=== PATIENT | male | born 1955 | race Caucasian/White ===

== ENCOUNTER 2022-03-16 16:29 | Inpatient (IN) | payer MEDICARE, MEDICAID, SELFPAY ==
[2022-03-16] VITALS (11 sets, daily range): BP systolic 125–145; BP diastolic 66–92; PULSE 17–82; RESP 16–20; TEMP 36.9–37; O2SAT 95–96; BMI 24.3
--- NOTE | ~2022-03-16 | XR_ITS ---
EXAMINATION: XR HAND, RIGHT CLINICAL INFORMATION: Right hand pain, redness and swelling. Fourth digit. COMPARISON: None TECHNIQUE: PA, lateral, and oblique views of the right hand. FINDINGS: Moderate soft tissue swelling is seen in the fourth digit. The underlying osseous structures appear intact without acute fracture or dislocation. The remainder the digits are intact. The carpal bones are normally aligned. The distal radius and ulna are intact. XR/XR hand RT min 3V IMPRESSION: Moderate soft tissue swelling in the fourth digit without acute underlying osseous abnormality. No radiopaque foreign body.
--- NOTE | 2022-03-16 17:55 | ED.EXTPRO ---
HPI - Extremity Problem General Chief complaint: Extremity Injury, Upper Stated complaint: ?Infected finger Time Seen by Provider: 03/16/22 17:49 Source: patient Mode of arrival: ambulatory Limitations: no limitations Related Data Allergies Allergy/AdvReac Type Severity Reaction Status Date / Time No Known Allergies Allergy Verified 03/16/22 17:16 ON LICENSE OF [facility] Social History Social History Advance Directives: No Advance Directives Information Provided: No Physical Exam Vital Signs: Vital Signs: Last Vital Signs Temp 98.6 F 03/16/22 17:13 Pulse 82 03/16/22 17:13 Resp 16 03/16/22 17:13 BP 125/80 03/16/22 17:13 Pulse Ox 96 03/16/22 17:13 BMI result Body Mass Index 24.3
--- NOTE | 2022-03-16 18:01 | ED.SKABFB ---
HPI - Skin/Abscess/Foreign Bdy General Chief complaint: Extremity Injury, Upper Stated complaint: ?Infected finger Time Seen by Provider: 03/16/22 17:49 Source: patient Mode of arrival: ambulatory Limitations: no limitations History of Present Illness HPI narrative: 66-year-old male presenting to the ED with complaints of right ring finger pain/swelling/redness after he was outside approximately 3 days ago and accidentally stuck himself with a flower regan that had thorns he is unsure if they were roses although he reports that they may be since then he has been having the symptoms. He reports associated numbness to the finger. He denies any fevers, chills, history of MRSA or any other symptoms complaints or concerns at this time. He reports he is unsure if he is up-to-date on tetanus MD complaint: abscess/boil Onset (ago): day(s) (3) Tetanus up to date: unsure Location: RUE (index) Severity: severe Severity scale (1-10): >10 Quality: stabbing, aching and constant Pain Consistency: constant Relieving factors: none Exacerbating factors: palpation and movement Context: other (Possible tez thorn regan) Associated symptoms: other (Numbness) Treatments prior to arrival: other (He was able to pull out the torn when it occurred and attempted to drain the pus at home) Related Data Home Medications Medication Instructions Recorded Confirmed No Known Home Meds 03/16/22 03/16/22 Allergies Allergy/AdvReac Type Severity Reaction Status Date / Time No Known Allergies Allergy Verified 03/16/22 17:16 Review of Systems Review of Systems: Constitutional : Denies history of same, Denies any other sites involved, Denies IV drug use, Denies history of MRSA, Denies swollen glands, Denies injury, Denies Fever, Denies Chills, + Sig Pain, Denies Systemic symptoms Cardiovascular : No Chest Pain, No SOB Respiratory : No Dyspnea Gastrointestinal : No abdominal pain Musculoskeletal : No Joint Swelling Skin : + abscess with surrounding erythema, No skin laceration, No Foreign bodies, Denies bites, Denies discharge, Neuro : No Weakness, + Numbness/tingling Psych : No SI/HI/thoughts of self injury Yes all other systems are reviewed and are negative PMFSH Past Medical History Attestation statement: The following information was validated with the patient. Social History Social History Advance Directives: No Advance Directives Information Provided: No Physical Exam Vital Signs: Vital Signs: Last Vital Signs Temp 98.5 F 03/16/22 19:04 Pulse 77 03/16/22 19:04 Resp 20 03/16/22 19:04 BP 145/85 H 03/16/22 19:04 Pulse Ox 96 03/16/22 19:04 BMI result Body Mass Index 24.3 vital signs have been reviewed as normal and appeared to be correct. Blood pressure normal. Heart rate normal. Respiration rate normal. Temperature normal. Oxygen saturation normal. Appearance: Alert. Oriented X3. No acute distress. Head: Normal external exam. Normocephalic. Atraumatic. Eyes: PERRLA. EOMI. Conjunctiva and sclera normal. Eyelids normal. ENT: Pharynx normal. Uvula midline. Moist mucous membranes. Normal voice. No trismus noted. No drooling noted. No muffled voice noted. Neck: Normal inspection. Neck supple. FROM. No adenopathy. Thyroid Normal. No meningeal signs. CVS: Normal heart rate and rhythm. Heart sound normal. Pulses normal throughout. No murmurs/rales/gallops. Respiratory: No respiratory distress. Painless inspiration. Breath sounds normal. No wheezes/rales/rhonchi noted. No accessory muscle usage noted or decreased air movement noted. Back: Full range of motion noted. Nontender. No signs of trauma. Patient neuro intact bilaterally and distally on all 4 extremities. Patient's reflexes intact bilaterally and distally on all 4 extremities. No rashes/lesion/induration/fluctuance or signs of infection noted. Skin: Skin warm and dry. Normal skin color. Normal skin turgor. No lacerations noted. Extremities: To right hand ring finger at the distal aspect patient has fluctuant abscess with moderate surrounding erythema/soft tissue swelling/tenderness palpation and warm to touch consistent with cellulitic infection. He does have limited range of motion on flexion although has full extension although can perform a flexion with the right ring finger as you can see in the pictures below therefore at this time not consistent with tenosynovitis. There appears to be some streaking. Otherwise no drainage or foreign bodies noted at this time. Otherwise all other extremities exhibit normal range of motion and nontender. Neuro: Oriented X 3. No motor deficit. No sensory deficit. Reflexes normal. Normal steady gait. No focal neuro deficits noted. CN's II-XII intact bilaterally? Vascular: + radial pulses/+ 2 distal pedal pulses/+2 dorsalis pedis b/l. Normal cap refill. No cyanosis noted to upper extremity nails and lower extremity toes nails. Course Course Course Narrative: 18pm - 66-year-old male presenting to the ED with 3 days of pain/swelling/redness to his right hand ring finger after he accidentally sustained a tez regan thorn. He reports that he is unsure if he is up-to-date on tetanus. X-ray was obtained while the patient was in waiting room and revealed moderate soft tissue swelling in the 4th digit without acute underlying osseous abnormality and no foreign bodies at this time On exam patient can perform flexion reports mild pain with this therefore I consulted with Orthopedics YEMI Vines and she reported that at this time this is not tenosynovitis and that the patient does not need to go to the operating room at this time she reports that I can perform a bedside I&D the patient on IV antibiotics and admit. I also consulted with Uriel Wharton the infectious disease doctor and she recommended also providing antifungal treatment with p.o. Sporonox 100mg BID x 7 days and IV antibiotics and to admit the patient although we do not have that specific antifungal on our formulary therefore reconsulting with Infectious Disease. Plan: Labs, blood cultures, lactic acid. Provide IV fluids, IV antibiotics and plan to admit patient will also need antifungal is a. Reevaluation(s) Reevaluation #1: - labs reviewed patient with an elevated white blood cell count at 13,000. Otherwise all other labs are within normal limits. Patient negative for COVID. - Dr. Akiko Trevino reported they did not have the Sporonox in formulary that we could use Diflucan therefore I ordered p.o. 800mg Diflucan 100 mg p.o. at this time which is what is recommended on up-to-date as well. - patient now status post I&D with 11 inch scalpel with mild purulent drainage from the site although when I squeeze from the base of the finger I see purulent drainage coming out through the incision I made therefore I consulted with orthopedics PA and she reported that I should keep it open and do warm soaks for 20 minutes 3 to 4 times a day and will continue to do this therefore starting this at this time. Patient will be admitted at this time. Time: 19:05 Reevaluation #2: Dr. Cervantes to admit at this time. Time: 19:26 MDM - Skin/Abscess/Foreign Bdy Medical Records Attestation: I reviewed the patient's medical records. Lab Data Attestation: I reviewed the patient's lab results. Result diagrams: 03/16/22 18:17 03/16/22 18:17 Labs: Lab Results 03/16/22 03/16/22 03/16/22 Range/Units 18:17 18:17 18:17 WBC 13.2 H (4.8-10.8) X10*3/uL RBC 4.61 (4.60-5.80) X10*6/uL Hgb 14.8 (14.0-18.0) g/dl Hct 43.9 (42.0-52.0) % MCV 95.2 (80.0-98.0) fL MCH 32.1 (27.0-33.0) pg MCHC 33.7 (31.0-36.0) g/dl RDW 12.3 (11.0-16.0) % Plt Count 241 (160-400) X10*3/uL MPV 10.9 (9.4-12.4) fL Immature Gran % (Auto) 0.7 H (0.0-0.4) % Neut % (Auto) 73.3 H (45-73) % Lymph % (Auto) 14.2 L (20-40) % [place] % (Auto) 10.7 (2-11) % Eos % (Auto) 0.8 (0-4) % Baso % (Auto) 0.3 (0-2) % Lymph # (Auto) 1.9 (1.2-4.9) X10*3/uL [place] # (Auto) 1.4 H (0.1-1.2) X10*3/uL Eos # (Auto) 0.1 (0.0-0.4) X10*3/uL Baso # (Auto) 0.0 (0.0-0.2) X10*3/uL Abs Immat Gran (auto) 0.09 H (0.00-0.03) X10*3/uL Absolute Neuts (auto) 9.7 H (2.0-8.3) x10*3/uL Absolute Nucleated RBC 0.000 (0.0-0.012) X10*3/uL Nucleated RBC % (auto) 0.0 (0.0-0.2) /100WBC PT 12.4 (9.9-13.0) SEC INR 1.1 (0.9-1.1) Sodium 135 (135-145) mmol/L Potassium 4.5 (3.3-5.1) mmol/L Chloride 101 (96-108) mmol/L Carbon Dioxide 23 (22-29) mmol/L Anion Gap 16 (12-20) BUN 10 (9-16) mg/dL Creatinine 0.76 (0.5-1.4) mg/dL Estim Creat Clear Calc 96.9 Estimated GFR > 60 Random Glucose 95 (60-115) mg/dL Lactic Acid (0.5-2.0) mmol/L Calcium 9.5 (8.4-10.2) mg/dL Magnesium 2.1 (1.6-2.6) mg/dL Total Bilirubin 0.8 (0.0-1.0) mg/dL AST 26 (5-37) U/L ALT 23 (0-40) U/L Alkaline Phosphatase 98 (39-117) U/L Total Protein 7.7 (6.5-8.0) g/dL Albumin 4.2 (3.5-5.0) g/dL COVID-19 ([facility]) (Negative) COVID-19 Clin Com 03/16/22 03/16/22 Range/Units 18:17 18:18 WBC (4.8-10.8) X10*3/uL RBC (4.60-5.80) X10*6/uL Hgb (14.0-18.0) g/dl Hct (42.0-52.0) % MCV (80.0-98.0) fL MCH (27.0-33.0) pg MCHC (31.0-36.0) g/dl RDW (11.0-16.0) % Plt Count (160-400) X10*3/uL MPV (9.4-12.4) fL Immature Gran % (Auto) (0.0-0.4) % Neut % (Auto) (45-73) % Lymph % (Auto) (20-40) % [place] % (Auto) (2-11) % Eos % (Auto) (0-4) % Baso % (Auto) (0-2) % Lymph # (Auto) (1.2-4.9) X10*3/uL [place] # (Auto) (0.1-1.2) X10*3/uL Eos # (Auto) (0.0-0.4) X10*3/uL Baso # (Auto) (0.0-0.2) X10*3/uL Abs Immat Gran (auto) (0.00-0.03) X10*3/uL Absolute Neuts (auto) (2.0-8.3) x10*3/uL Absolute Nucleated RBC (0.0-0.012) X10*3/uL Nucleated RBC % (auto) (0.0-0.2) /100WBC PT (9.9-13.0) SEC INR (0.9-1.1) Sodium (135-145) mmol/L Potassium (3.3-5.1) mmol/L Chloride (96-108) mmol/L Carbon Dioxide (22-29) mmol/L Anion Gap (12-20) BUN (9-16) mg/dL Creatinine (0.5-1.4) mg/dL Estim Creat Clear Calc Estimated GFR Random Glucose (60-115) mg/dL Lactic Acid 1.3 (0.5-2.0) mmol/L Calcium (8.4-10.2) mg/dL Magnesium (1.6-2.6) mg/dL Total Bilirubin (0.0-1.0) mg/dL AST (5-37) U/L ALT (0-40) U/L Alkaline Phosphatase (39-117) U/L Total Protein (6.5-8.0) g/dL Albumin (3.5-5.0) g/dL COVID-19 ([facility]) Negative (Negative) COVID-19 Clin Com See Note Imaging Data X-ray of right hand: Attestation: I personally reviewed and interpreted this imaging study as follows: Radiologist's impression: FINDINGS: Moderate soft tissue swelling is seen in the fourth digit. The underlying osseous structures appear intact without acute fracture or dislocation. The remainder the digits are intact. The carpal bones are normally aligned. The distal radius and ulna are intact. XR/XR hand RT min 3V IMPRESSION: Moderate soft tissue swelling in the fourth digit without acute underlying osseous abnormality. No radiopaque foreign body. Procedures Abscess I/D Site: hand Side (if applicable): right Local Anesthetic: lidocaine 2% Amount of anesthesia used (mL): 5 Technique: incised with blade Amount of fluid expressed (mL): 3 Sent for culture/gram staining?: No Irrigation: Yes Packing used?: none Complications: pain and other (Otherwise no other complications) Critical Care Time Critical Care Time Critical Care Time: Yes Total Critical Care Time: 60 Attestation: I personally attest to this time spent taking care of the patient Discharge Plan Discharge Patient Disposition: Admitted As Inpatient
[2022-03-16 18:30] LABS: MANUAL DIFF FLAG NO
[2022-03-16] MEDS: 0.9 % Sodium Chloride 1,000 ML 999 ML IVCONT (18:32)
[2022-03-16] MEDS: Lidocaine HCl 2 % MPF 5 ML VIAL SUBCUT (18:33)
[2022-03-16] MEDS: cefTRIAXone sodium 2 GM in 0.9 % Sodium Chloride 50 ML IV (18:33)
[2022-03-16] MEDS: Diphth,Pertus(ACell),Tet Adult 0.5 ML SYRINGE IM (18:34)
[2022-03-16 18:37] LABS: INTERNATIONAL NORM RATIO 1.1 (0.9-1.1); Prothrombin Time 12.4 SEC (9.9-13.0)
[2022-03-16] MEDS: Morphine Sulfate 4 MG/ML CARTRIDGE IVPUSH (18:40)
[2022-03-16] MEDS: ondansetron HCL 4 MG/2 ML VIAL IVPUSH (18:40)
[2022-03-16 18:50] LABS: COVID-19 Test Negative (Negative)
--- NOTE | 2022-03-16 18:51 | PC.NURSE ---
PROVIDER AT BEDSIDE FOR I/D.
[2022-03-16 18:54] LABS: Basophils Percent Auto 0.3 % (0-2); Eosinophils Absolute Auto 0.1 X10*3/uL (0.0-0.4); Eosinophils Percent Auto 0.8 % (0-4); Hematocrit 43.9 % (42.0-52.0); Hemoglobin 14.8 g/dl (14.0-18.0); Imm Gran Abs Auto 0.09 X10*3/uL (0.00-0.03); Imm Gran Pct Auto 0.7 % (0.0-0.4); Lymphocytes Absolute Auto 1.9 X10*3/uL (1.2-4.9); Lymphocytes Percent Auto 14.2 % (20-40); Mean Corpuscular HGB Conc 33.7 g/dl (31.0-36.0); Mean Corpuscular Hemoglobin 32.1 pg (27.0-33.0); Mean Corpuscular Volume 95.2 fL (80.0-98.0); Mean Platelet Volume 10.9 fL (9.4-12.4); Monocytes Absolute Auto 1.4 X10*3/uL (0.1-1.2); Monocytes Percent Auto 10.7 % (2-11); Neutrophils Absolute Auto 9.7 x10*3/uL (2.0-8.3); Neutrophils Percent Auto 73.3 % (45-73); Platelet Count 241 X10*3/uL (160-400); Red Blood Count 4.61 X10*6/uL (4.60-5.80); Red Cell Distribution Width 12.3 % (11.0-16.0); White Blood Count 13.2 X10*3/uL (4.8-10.8)
[2022-03-16 18:59] LABS: Lactic Acid 1.3 mmol/L (0.5-2.0)
[2022-03-16] MEDS: HYDROmorphone HCl 1 MG/ML SYRINGE IVPUSH ×2 (18:59→20:01)
[2022-03-16 19:03] LABS: Alanine Aminotransferase 23 U/L (0-40); Albumin Level 4.2 g/dL (3.5-5.0); Alkaline Phosphatase 98 U/L (39-117); Anion Gap 16 (12-20); Aspartate Amino Transferase 26 U/L (5-37); Bilirubin Total 0.8 mg/dL (0.0-1.0); Blood Urea Nitrogen 10 mg/dL (9-16); Calcium 9.5 mg/dL (8.4-10.2); Carbon Dioxide 23 mmol/L (22-29); Chloride 101 mmol/L (96-108); Creatinine Clr Calc Pharmacy 96.9; Estimated Glomerular Filt Rate > 60; Glucose Random 95 mg/dL (60-115); Magnesium 2.1 mg/dL (1.6-2.6); Potassium 4.5 mmol/L (3.3-5.1); Sodium 135 mmol/L (135-145); Total Protein 7.7 g/dL (6.5-8.0)
--- NOTE | 2022-03-16 19:22 | PHA.MEDREC ---
Pharmacy Consult ? Medication Reconciliation Pharmacy has completed the medication reconciliation. Dee Dee Qureshi, KieshaD
[2022-03-16 19:34] LABS: C Reactive Protein 7.05 mg/dL (< or = 0.50)
[2022-03-16 19:59] LABS: Erythrocyte Sedimentation Rate 15 MM/HR (0-15)
[2022-03-16] MEDS: oxyCODONE HCl Immed Release 5 MG TABLET 10 MG PO (21:06)
[2022-03-16] MEDS: Fluconazole 100 MG TABLET 800 MG PO (21:33)
--- NOTE | 2022-03-16 23:39 | PM.IMHP ---
History of Present Illness Date of Service: 03/16/22 Chief Complaint: cellulitis 66-year-old male with no significant past medical history presents to the hospital with swelling of his right ring finger. Patient reports that he was working in the [employer] 3 days ago when he wrecked his hand against a thorn [employer] wish. He thought he got the thorn out of his finger but then started developing swelling, redness, and significant pain in his ring finger on the right. Patient reports the pain is 9/10, nonradiating, the finger has slowly become more swollen and erythematous. He denies any fever or chills, no abdominal pain nausea or vomiting, no diarrhea constipation, no urinary symptoms and no lower extremity edema. On arrival to the ED patient hemodynamically stable with no significant vital abnormality Labs are significant for WBC count of 13.2, labs otherwise unremarkable. CRP of 7 Hand x-ray shows moderate soft tissue swelling Becca 4th digit without acute underlying osseous abnormality Infectious Disease was consult, patient admitted after being given an anti fungal, and IV antibiotics Review of Systems Review of Systems: Yes all other systems are reviewed and are negative [facility] Medical History (Updated 03/17/22 @ 06:11 by Debbie Cervantes MD) No pertinent past medical history Family History (Updated 03/17/22 @ 06:11 by Debbie Cervantes MD) Father Prostate cancer Surgical History (Updated 03/17/22 @ 06:11 by Debbie Cervantes MD) No pertinent past surgical history Social History Household Members: Family Housing: Apartment Patient Tobacco Use Status: Current everyday Tobacco user Tobacco use type: Cigarette Smoked in Last 30 Days: Yes Patient Interested in Nicotine Replacement: Yes Patient Given Instructions on How to Stop Smoking: Yes Date Education Initiated: 03/17/22 Second Hand Smoke Exposure: No Use of substances other than those prescribed or required for medical reasons: No Have you been hit, kicked, punched, or otherwise hurt by someone within the past year? If so, by whom?: No Do you feel safe in your current relationship?: No Current Relationship Is there a partner from a previous relationship who is making you feel unsafe now?: No Advance Directives: No Advance Directives Information Provided: No Do you have thoughts of harming others: None Do you have a plan to hurt others: No Plan Recently lost weight without trying: No Eating poorly because of decreased appetite: No Nutrition Risks: No Nutritional Risk Meds Allergies Allergy/AdvReac Type Severity Reaction Status Date / Time No Known Allergies Allergy Verified 03/16/22 17:16 Active Medications: Current Medications Acetaminophen (Acetaminophen 325 Mg Tablet) 650 mg PO Q6H PRN PRN Reason: Pain, Mild (Pain Scale 1-3) Docusate Sodium (Docusate Sodium 100 Mg Capsule) 100 mg PO DAILY PRN PRN Reason: Constipation Enoxaparin Sodium (Enoxaparin Sodium 40 Mg/0.4 Ml Syringe) 40 mg SUBCUT Q24H ARNULFO Hydromorphone HCl (Hydromorphone Hcl 1 Mg/Ml Syringe) 0.5 mg IVPUSH Q4H PRN; Protocol PRN Reason: Pain, Severe (Pain Scale 7-10) Fluconazole (Diflucan) 400 mg in 200 mls @ 100 mls/hr IV Q24H ARNULFO Vancomycin HCl 1,250 mg/ (Sodium Chloride) 250 mls @ 166.667 mls/hr IV Q12H ARNUFLO Ondansetron HCl (Ondansetron Hcl 4 Mg/2 Ml Vial) 4 mg IVPUSH Q8H PRN PRN Reason: Nausea and Vomiting Pharmacy Consult (Consult Rx Perform Med Rec) 1 each MISCELLANE ONCE PRN PRN Reason: Consult order Pharmacy Consult (Consult Rx Vancomycin Dosing) 1 each MISCELLANE DAILY PRN PRN Reason: Consult order Sodium Chloride (0.9 % Sodium Chloride Flush 3 Ml Syringe) 3 ml IVFLUSH QSHIFT [facility] Home Medications Medication Instructions Recorded Confirmed Last Taken Type No Known Home Meds 03/16/22 03/16/22 Unknown History Physical Exam Vital Signs and Narrative: Vital Signs: Last Vital Signs Temp 98.4 F 03/16/22 22:26 Pulse 79 03/16/22 22:26 Resp 18 03/16/22 22:26 BP 128/66 03/16/22 22:26 Pulse Ox 95 03/16/22 22:26 BMI result Body Mass Index 24.3 Const: General: cooperative and no acute distress Orientation/consciousness: patient oriented x3 Eyes: General: appearance normal, both eyes and all related structures Pupils: Equal, round and reactive pupils present Resp: Effort & Inspection: normal respiratory effort Auscultation: clear to auscultation bilaterally Cardio: Rate: regular rate Rhythm: regular rhythm GI: Palpation (GI): Soft to palpation Auscultation: normal bowel sounds Skin: General skin exam: no rashes or lesions noted Neuro: General: patient oriented x3 Cranial nerves: Yes Equal, round and reactive pupils present Cognition (Neuro): normal cognition Extrem: Other: Ring finger on the right is erythematous, edematous, tender and warm Results Labs CBC and Chem 7: 03/17/22 05:36 03/17/22 05:36 Labs: Laboratory Results - last 24 hr 03/16/22 03/16/22 03/16/22 18:17 18:17 18:17 MCV 95.2 MCH 32.1 MCHC 33.7 RDW 12.3 Plt Count 241 MPV 10.9 Immature Gran % (Auto) 0.7 H Neut % (Auto) 73.3 H Lymph % (Auto) 14.2 L [place] % (Auto) 10.7 Eos % (Auto) 0.8 Baso % (Auto) 0.3 Lymph # (Auto) 1.9 [place] # (Auto) 1.4 H Eos # (Auto) 0.1 Baso # (Auto) 0.0 Abs Immat Gran (auto) 0.09 H Absolute Neuts (auto) 9.7 H Absolute Nucleated RBC 0.000 Nucleated RBC % (auto) 0.0 ESR PT 12.4 INR 1.1 Anion Gap 16 Estim Creat Clear Calc 96.9 Estimated GFR > 60 Random Glucose 95 Lactic Acid Calcium 9.5 Magnesium 2.1 Total Bilirubin 0.8 AST 26 ALT 23 Alkaline Phosphatase 98 C-Reactive Protein 7.05 H Total Protein 7.7 Albumin 4.2 COVID-19 ([facility]) COVID-19 Clin Com 03/16/22 03/16/22 03/16/22 18:17 18:17 18:18 MCV MCH MCHC RDW Plt Count MPV Immature Gran % (Auto) Neut % (Auto) Lymph % (Auto) [place] % (Auto) Eos % (Auto) Baso % (Auto) Lymph # (Auto) [place] # (Auto) Eos # (Auto) Baso # (Auto) Abs Immat Gran (auto) Absolute Neuts (auto) Absolute Nucleated RBC Nucleated RBC % (auto) ESR 15 PT INR Anion Gap Estim Creat Clear Calc Estimated GFR Random Glucose Lactic Acid 1.3 Calcium Magnesium Total Bilirubin AST ALT Alkaline Phosphatase C-Reactive Protein Total Protein Albumin COVID-19 ([facility]) Negative COVID-19 Clin Com See Note Imaging Radiologist's Impressions: Impressions Hand X-Ray 03/16/22 17:25 IMPRESSION: Moderate soft tissue swelling in the fourth digit without acute underlying osseous abnormality. No radiopaque foreign body. Assessment and Plan (1) Cutaneous sporotrichosis: Status: Acute (2) Cellulitis: Status: Acute Plan 66-year-old male with no pertinent past medical history presents to the hospital after being prepped by 30 tez regan developing swelling in his right ring finger # cutaneous sporotrichosis - will treat with IV fluconazole, itraconazole is first-line but not on formulary - follow cultures - infectious Disease consulted # cellulitis - has erythema, tenderness, warmth, as well as edema - will treat with IV antibiotics - follow cultures DVT prophylaxis: Lovenox Quality Stroke Does the patient have a stroke diagnosis?: No VTE Prior VTE?: No VTE Risk Level:: Medical - moderate - high VTE Device Contraindication: Treatment Not Indicated VTE Drug Contraindication: N/A - Med Ordered
[2022-03-17] VITALS (7 sets, daily range): BP systolic 123–140; BP diastolic 67–76; PULSE 62–78; RESP 17–20; TEMP 36.7–37.2; O2SAT 93–98
--- NOTE | 2022-03-17 01:34 | PC.NURSE ---
This RN contacting pharmacy regarding discrepancy order for Vanco. First dose ordered until noon time today. Pharmacy to correct.
[2022-03-17] MEDS: HYDROmorphone HCl 1 MG/ML SYRINGE 0.5 MG IVPUSH ×4 (01:43→22:03)
[2022-03-17] MEDS: Acetaminophen 325 MG TABLET 650 MG PO (01:43)
[2022-03-17] MEDS: Enoxaparin Sodium 40 MG/0.4 ML SYRINGE SUBCUT (01:43)
[2022-03-17] MEDS: vancomycin HCL 1,250 MG in 0.9 % Sodium Chloride 250 ML 166.67 MG IV (01:44)
--- NOTE | 2022-03-17 01:51 | PC.NURSE ---
Pt medicated per JAN. Plan for transport to floor once able to give report to RN.
--- NOTE | 2022-03-17 02:10 | PC.NURSE ---
M/S unable to take report @ this time.
[2022-03-17 05:43] LABS: MANUAL DIFF FLAG NO
[2022-03-17 05:47] LABS: Basophils Percent Auto 0.2 % (0-2); Eosinophils Absolute Auto 0.1 X10*3/uL (0.0-0.4); Eosinophils Percent Auto 0.8 % (0-4); Hematocrit 40.5 % (42.0-52.0); Hemoglobin 13.3 g/dl (14.0-18.0); Imm Gran Abs Auto 0.04 X10*3/uL (0.00-0.03); Imm Gran Pct Auto 0.3 % (0.0-0.4); Lymphocytes Absolute Auto 1.7 X10*3/uL (1.2-4.9); Lymphocytes Percent Auto 13.8 % (20-40); Mean Corpuscular HGB Conc 32.8 g/dl (31.0-36.0); Mean Corpuscular Volume 97.6 fL (80.0-98.0); Mean Platelet Volume 10.3 fL (9.4-12.4); Monocytes Absolute Auto 1.5 X10*3/uL (0.1-1.2); Monocytes Percent Auto 12.3 % (2-11); Neutrophils Absolute Auto 8.8 x10*3/uL (2.0-8.3); Neutrophils Percent Auto 72.6 % (45-73); Platelet Count 208 X10*3/uL (160-400); Red Blood Count 4.15 X10*6/uL (4.60-5.80); Red Cell Distribution Width 12.4 % (11.0-16.0); White Blood Count 12.1 X10*3/uL (4.8-10.8)
[2022-03-17 06:07] LABS: Anion Gap 12 (12-20); Blood Urea Nitrogen 11 mg/dL (9-16); Calcium 9.2 mg/dL (8.4-10.2); Carbon Dioxide 27 mmol/L (22-29); Chloride 101 mmol/L (96-108); Creatinine Clr Calc Pharmacy 88.7; Estimated Glomerular Filt Rate > 60; Glucose Random 98 mg/dL (60-115); Potassium 5.3 mmol/L (3.3-5.1); Sodium 135 mmol/L (135-145)
[2022-03-17] MEDS: 0.9 % Sodium Chloride Flush 3 ML SYRINGE IVFLUSH ×2 (08:13→15:54)
[2022-03-17] MEDS: Nicotine 21 MG PATCH.TD24 TRANSDERMA (08:13)
[2022-03-17] MEDS: oxyCODONE HCl Immed Release 5 MG TABLET 10 MG PO ×2 (10:06→14:32)
--- NOTE | 2022-03-17 10:12 | P.PNIM_ITS ---
Subjective Subjective Date of Service: 03/17/22 <DOLORES Rodriguez - Last Filed: 03/17/22 10:30> 03/18/22 <John Moore MD - Last Filed: 03/18/22 08:11> Interval History: seen and examined this morning follow up for right hand infection patient reports significant pain. denies fever or chills <DOLORES Rodriguez - Last Filed: 03/17/22 10:30> Review of Systems Review of Systems: Yes all other systems are reviewed and are negative <DOLORES Rodriguez - Last Filed: 03/17/22 10:30> Constitutional Constitutional: Denies chills and Denies fever(s) <DOLORES Rodriguez - Last Filed: 03/17/22 10:30> Cardiovascular Cardiovascular: Denies chest pain, Denies palpitations and Denies dyspnea <DOLORES Rodriguez Last Filed: 03/17/22 10:30> Respiratory Respiratory: Denies cough and Denies dyspnea <DOLORES Rodriguez - Last Filed: 03/17/22 10:30> Gastrointestinal Gastrointestinal: Denies abdominal pain, Denies nausea and Denies vomiting <DOLORES Rodriguez Last Filed: 03/17/22 10:30> Endocrine Endocrine: Denies palpitations <DOLORES Rodriguez - Last Filed: 03/17/22 10:30> Physical Exam Vital Signs: Vital Signs: Last Vital Signs Temp 98.4 F 03/17/22 07:17 Pulse 65 03/17/22 07:17 Resp 20 03/17/22 07:17 BP 140/76 H 03/17/22 07:17 Pulse Ox 95 03/17/22 07:17 BMI result Body Mass Index 24.3 <DOLORES Rodriguez Last Filed: 03/17/22 10:30> Const: General: cooperative, alert and awake <DOLORES Rodriguez Last Filed: 03/17/22 10:30> Nutritional Appearance: average body habitus <DOLORES Rodriguez Last Filed: 03/17/22 10:30> Orientation/consciousness: patient oriented x3 <DOLORES Rodriguez Last Filed: 03/17/22 10:30> Eyes: Pupils: Equal, round and reactive pupils present <DOLORES Rodriguez - Last Filed: 03/17/22 10:30> EOM: EOMs intact bilaterally <DOLORES Rodriguez - Last Filed: 03/17/22 10:30> Resp: Effort & Inspection: normal respiratory effort and able to speak in complete sentences <DOLORES Rodriguez - Last Filed: 03/17/22 10:30> Auscultation: clear to auscultation bilaterally <DOLORES Rodriguez - Last Filed: 03/17/22 10:30> Cardio: Rate: regular rate <DOLORES Rodriguez - Last Filed: 03/17/22 10:30> Heart sounds: S1 normal heart sound present and S2 normal heart sound present <DOLORES Rodriguez - Last Filed: 03/17/22 10:30> GI: Palpation (GI): Soft to palpation and nontender <DOLORES Rodriguez - Last Filed: 03/17/22 10:30> Skin: Other: <DOLORES Rodriguez - Last Filed: 03/17/22 10:30> Neuro: General: patient oriented x3 <DOLORES Rodriguez - Last Filed: 03/17/22 10:30> Cranial nerves: Yes Equal, round and reactive pupils present <DOLORES Rodriguez - Last Filed: 03/17/22 10:30> Objective Data Active Medications Acetaminophen (Acetaminophen 325 Mg Tablet) 650 mg PO Q6H PRN PRN Reason: Pain, Mild (Pain Scale 1-3) Last Admin: 03/17/22 01:43 Dose: 650 mg Documented by: LESLY Docusate Sodium (Docusate Sodium 100 Mg Capsule) 100 mg PO DAILY PRN PRN Reason: Constipation Enoxaparin Sodium (Enoxaparin Sodium 40 Mg/0.4 Ml Syringe) 40 mg SUBCUT Q24H [facility] Last Admin: 03/17/22 01:43 Dose: 40 mg Documented by: LESLY Hydromorphone HCl (Hydromorphone Hcl 1 Mg/Ml Syringe) 0.5 mg IVPUSH Q4H PRN; Protocol PRN Reason: Pain, Severe (Pain Scale 7-10) Last Admin: 03/17/22 06:02 Dose: 0.5 mg Documented by: MAHENDRA Fluconazole (Diflucan) 400 mg in 200 mls @ 100 mls/hr IV Q24H [facility] Nicotine (Nicotine 21 Mg Patch.Td24) 21 mg TRANSDERMA DAILY [facility] Last Admin: 03/17/22 08:13 Dose: 21 mg Documented by: ОЛЬГА Ondansetron HCl (Ondansetron Hcl 4 Mg/2 Ml Vial) 4 mg IVPUSH Q8H PRN PRN Reason: Nausea and Vomiting Oxycodone HCl (Oxycodone Hcl Immed Release 5 Mg Tablet) 10 mg PO Q4H PRN PRN Reason: Pain, Moderate (Pain Scale 4-6 Last Admin: 03/17/22 10:06 Dose: 10 mg Documented by: ОЛЬГА Pharmacy Consult (Consult Rx Perform Med Rec) 1 each MISCELLANE ONCE PRN PRN Reason: Consult order Pharmacy Consult (Consult Rx Vancomycin Dosing) 1 each MISCELLANE DAILY PRN PRN Reason: Consult order Sodium Chloride (0.9 % Sodium Chloride Flush 3 Ml Syringe) 3 ml IVFLUSH QSHIFT [facility] Last Admin: 03/17/22 08:13 Dose: 3 ml Documented by: ОЛЬГА <DOLORES Rodriguez - Last Filed: 03/17/22 10:30> Labs CBC & Chem 7: : 03/18/22 05:46 03/18/22 05:45 <DOLORES Rodriguez - Last Filed: 03/17/22 10:30> Labs: Laboratory Results - last 24 hr 03/16/22 03/16/22 03/16/22 18:17 18:17 18:17 MCV 95.2 MCH 32.1 MCHC 33.7 RDW 12.3 Plt Count 241 MPV 10.9 Immature Gran % (Auto) 0.7 H Neut % (Auto) 73.3 H Lymph % (Auto) 14.2 L [place] % (Auto) 10.7 Eos % (Auto) 0.8 Baso % (Auto) 0.3 Lymph # (Auto) 1.9 [place] # (Auto) 1.4 H Eos # (Auto) 0.1 Baso # (Auto) 0.0 Abs Immat Gran (auto) 0.09 H Absolute Neuts (auto) 9.7 H Absolute Nucleated RBC 0.000 Nucleated RBC % (auto) 0.0 ESR PT 12.4 INR 1.1 Anion Gap 16 Estim Creat Clear Calc 96.9 Estimated GFR > 60 Random Glucose 95 Lactic Acid Calcium 9.5 Magnesium 2.1 Total Bilirubin 0.8 AST 26 ALT 23 Alkaline Phosphatase 98 C-Reactive Protein 7.05 H Total Protein 7.7 Albumin 4.2 COVID-19 ([facility]) COVID-19 Clin Com 03/16/22 03/16/22 03/16/22 18:17 18:17 18:18 MCV MCH MCHC RDW Plt Count MPV Immature Gran % (Auto) Neut % (Auto) Lymph % (Auto) [place] % (Auto) Eos % (Auto) Baso % (Auto) Lymph # (Auto) [place] # (Auto) Eos # (Auto) Baso # (Auto) Abs Immat Gran (auto) Absolute Neuts (auto) Absolute Nucleated RBC Nucleated RBC % (auto) ESR 15 PT INR Anion Gap Estim Creat Clear Calc Estimated GFR Random Glucose Lactic Acid 1.3 Calcium Magnesium Total Bilirubin AST ALT Alkaline Phosphatase C-Reactive Protein Total Protein Albumin COVID-19 ([facility]) Negative COVID-19 Blood cell Storage Com See Note 03/17/22 03/17/22 05:36 05:36 MCV 97.6 MCH 32.0 MCHC 32.8 RDW 12.4 Plt Count 208 MPV 10.3 Immature Gran % (Auto) 0.3 Neut % (Auto) 72.6 Lymph % (Auto) 13.8 L [place] % (Auto) 12.3 H Eos % (Auto) 0.8 Baso % (Auto) 0.2 Lymph # (Auto) 1.7 [place] # (Auto) 1.5 H Eos # (Auto) 0.1 Baso # (Auto) 0.0 Abs Immat Gran (auto) 0.04 H Absolute Neuts (auto) 8.8 H Absolute Nucleated RBC 0.000 Nucleated RBC % (auto) 0.0 ESR PT INR Anion Gap 12 Estim Creat Clear Calc 88.7 Estimated GFR > 60 Random Glucose 98 Lactic Acid Calcium 9.2 Magnesium Total Bilirubin AST ALT Alkaline Phosphatase C-Reactive Protein Total Protein Albumin COVID-19 ([facility]) COVID-19 Clin Com <DOLORES Rodriguez - Last Filed: 03/17/22 10:30> Assessment and Plan (1) Cutaneous sporotrichosis: Status: Acute <DOLORES Rodriguez - Last Filed: 03/17/22 10:30> (2) Cellulitis: Status: Acute <DOLORES Rodriguez - Last Filed: 03/17/22 10:30> Plan 66-year-old male with no pertinent past medical history presents to the hospital after being prepped by 30 [address] developing swelling in his right ring finger Cellulitis/abscess of right forth finger No evidence of sepsis s/p I&D in ED, no fluid sent for culture will cover for possible cutaneous sporotrichosis with IV fluconazole (itraconazole not on formulary) given patient's history of injury with tez regan thorn - continue IV vancomycin - seen by ortho, no surgical intervention required at this time, recommended warm soaks 3-4x daily - infectious Disease consult pending - pain control - follow blood cultures tob dependence smoking cessation advised NRT DVT prophylaxis: Lovenox Attending: dr. moore <DOLORES Rodriguez - Last Filed: 03/17/22 10:30> Quality Stroke Does the patient have a stroke diagnosis?: No <DOLORES Rodriguez - Last Filed: 03/17/22 10:30> VTE Prior VTE?: No <DOLORES Rodriguez - Last Filed: 03/17/22 10:30> VTE Risk Level:: Medical - moderate - high <DOLORES Rodriguez - Last Filed: 03/17/22 10:30> VTE Device Contraindication: Treatment Not Indicated <DOLORES Rodriguez - Last Filed: 03/17/22 10:30> VTE Drug Contraindication: N/A - Med Ordered <DOLORES Rodriguez - Last Filed: 03/17/22 10:30>
--- NOTE | 2022-03-17 11:06 | PM.EVENT ---
Event Note Date of Service: 03/17/22 Event Note: Patient seen this morning around 530am states 4 days ago he got a thorn prick in his finger and 2 days ago he noticed worsening pain and swelling in the right ring finger ED performed bedside I&D with little drainage ID consulted who recommended antifungals and iv abx i encouraged him to continue with abx and antifungals, warm water soaks there is no fluctulant or purulant area at this time to drain he can make fist bringing tip of fingers about 2cm from palmar crease. no pain with passive extension no pain along the flexor tendons, palmar aspect of hand or in thenar eminence no pain with axial loading of finger or wrist no lymphangitis will recheck tomorrow
--- NOTE | 2022-03-17 12:04 | MHC.CM.PN ---
IMM 03/17/22, EMR REVIEWED, PT ADMITTED W/CELLULITIS OF FINGER, BC'S PENDING, CM MET W/PT WHO IS A&OX4, PT REPORTS HE LIVES IN [place] HOWEVER IS VISITING HIS [facility] (AND FAMILY) IN [place] AND PLANS ON RETURNING THERE UPON D/C, PT DENIES USE OF DME AND NO HOME SERVICES, PT REPORTS HE HAS BEEN SPLITTING HIS TIME BETWEEN [place], [place] AND FAMILY IN [place], PT WILL RETURN TO [place] BEFORE RETURNING HOME TO [place]. PT REPORTS HE HAS A PCP IN [place] HOWEVER UNABLE TO RECALL NAME, PT DENIES BEING VACCINATED FOR COVID AND DECLINE TO COMPLETE A HCP AT THIS TIME. D/C PLAN: RETURN TO NEPHEW'S HOME NO SERVICES, FAMILY TO ARRANGE TRANSPORT.
[2022-03-17] MEDS: vancomycin HCL 1,000 MG in 0.9 % Sodium Chloride 250 ML 270 MG IV (14:35)
[2022-03-17] MEDS: Fluconazole in NaCl,Iso-Osm 400 MG/200 ML PIGGYBACK 100 MG IV (22:05)
[2022-03-18] MEDS: oxyCODONE HCl Immed Release 5 MG TABLET 10 MG PO ×4 (00:48→20:11)
[2022-03-18] MEDS: vancomycin HCL 1,000 MG in 0.9 % Sodium Chloride 250 ML 270 MG IV (00:49)
[2022-03-18 04:00] VITALS: BP 154/70; PULSE 67; RESP 17; TEMP 36.8; O2SAT 95
[2022-03-18 07:01] LABS: Hematocrit 42.2 % (42.0-52.0); Hemoglobin 13.5 g/dl (14.0-18.0); Mean Corpuscular Hemoglobin 31.3 pg (27.0-33.0); Mean Corpuscular Volume 97.7 fL (80.0-98.0); Platelet Count 208 X10*3/uL (160-400); Red Blood Count 4.32 X10*6/uL (4.60-5.80); Red Cell Distribution Width 12.1 % (11.0-16.0); White Blood Count 7.8 X10*3/uL (4.8-10.8)
[2022-03-18 07:13] LABS: Anion Gap 12 (12-20); Blood Urea Nitrogen 9 mg/dL (9-16); Calcium 9.3 mg/dL (8.4-10.2); Carbon Dioxide 28 mmol/L (22-29); Chloride 100 mmol/L (96-108); Creatinine Clr Calc Pharmacy 88.7; Estimated Glomerular Filt Rate > 60; Glucose Random 97 mg/dL (60-115); Potassium 4.4 mmol/L (3.3-5.1); Sodium 136 mmol/L (135-145)
[2022-03-18 07:38] VITALS: BP 151/75; PULSE 67; RESP 20; TEMP 37.3; O2SAT 94
--- NOTE | 2022-03-18 08:11 | P.PNIM_ITS ---
Subjective Subjective Date of Service: 03/18/22 Interval History: follow up for right hand infection patient reports improvement in the pain in the finger Review of Systems some pain in the finger, no fever Physical Exam Vital Signs: Vital Signs: Last Vital Signs Temp 99.1 F 03/18/22 07:38 Pulse 67 03/18/22 07:38 Resp 20 03/18/22 07:38 BP 151/75 H 03/18/22 07:38 Pulse Ox 94 03/18/22 07:38 BMI result Body Mass Index 24.3 Const: Orientation/consciousness: patient oriented x3 Resp: Effort & Inspection: normal respiratory effort Auscultation: clear to auscultation bilaterally Cardio: Rate: regular rate Rhythm: regular rhythm Heart sounds: S1 normal heart sound present and S2 normal heart sound present GI: Palpation (GI): Soft to palpation and nontender Auscultation: normal bowel sounds Skin: Other: Neuro: General: patient oriented x3 Extrem: Other: Ring finger on the right is erythematous, edematous, tender and warm Objective Data Active Medications Acetaminophen (Acetaminophen 325 Mg Tablet) 650 mg PO Q6H PRN PRN Reason: Pain, Mild (Pain Scale 1-3) Last Admin: 03/17/22 01:43 Dose: 650 mg Documented by: LESLY Docusate Sodium (Docusate Sodium 100 Mg Capsule) 100 mg PO DAILY PRN PRN Reason: Constipation Enoxaparin Sodium (Enoxaparin Sodium 40 Mg/0.4 Ml Syringe) 40 mg SUBCUT Q24H [facility] Last Admin: 03/18/22 00:49 Dose: Not Given Documented by: MAHENDRA Non-Admin Reason: pt ambulates actively Hydromorphone HCl (Hydromorphone Hcl 1 Mg/Ml Syringe) 0.5 mg IVPUSH Q4H PRN; Protocol PRN Reason: Pain, Severe (Pain Scale 7-10) Last Admin: 03/17/22 22:03 Dose: 0.5 mg Documented by: MAHENDRA Fluconazole (Diflucan) 400 mg in 200 mls @ 100 mls/hr IV Q24H [facility] Last Infusion: 03/18/22 00:22 Dose: 0 mls/hr Documented by: MAHENDRA Vancomycin HCl 1,000 mg/ (Sodium Chloride) 270 mls @ 270 mls/hr IV Q12H [facility] Last Infusion: 03/18/22 02:19 Dose: 0 mls/hr Documented by: MAHENDRA Nicotine (Nicotine 21 Mg Patch.Td24) 21 mg TRANSDERMA DAILY [facility] Last Admin: 03/17/22 08:13 Dose: 21 mg Documented by: ОЛЬГА Ondansetron HCl (Ondansetron Hcl 4 Mg/2 Ml Vial) 4 mg IVPUSH Q8H PRN PRN Reason: Nausea and Vomiting Oxycodone HCl (Oxycodone Hcl Immed Release 5 Mg Tablet) 10 mg PO Q4H PRN PRN Reason: Pain, Moderate (Pain Scale 4-6 Last Admin: 03/18/22 00:48 Dose: 10 mg Documented by: MAHENDRA Pharmacy Consult (Consult Rx Perform Med Rec) 1 each MISCELLANE ONCE PRN PRN Reason: Consult order Pharmacy Consult (Consult Rx Vancomycin Dosing) 1 each MISCELLANE DAILY PRN PRN Reason: Consult order Sodium Chloride (0.9 % Sodium Chloride Flush 3 Ml Syringe) 3 ml IVFLUSH QSHIFT [facility] Last Admin: 03/17/22 22:54 Dose: Not Given Documented by: MAHENDRA Non-Admin Reason: IV Running Labs CBC & Chem 7: 03/18/22 05:46 03/18/22 05:45 Labs: Laboratory Results - last 24 hr 03/18/22 03/18/22 05:45 05:46 MCV 97.7 MCH 31.3 MCHC 32.0 RDW 12.1 Plt Count 208 MPV 11.0 Absolute Nucleated RBC 0.000 Nucleated RBC % (auto) 0.0 Anion Gap 12 Estim Creat Clear Calc 88.7 Estimated GFR > 60 Random Glucose 97 Calcium 9.3 Microbiology Microbiology Results: Microbiology 03/16/22 18:17 Blood Culture - Preliminary Blood - Venous No growth after 24 hours. 03/16/22 18:19 Blood Culture - Preliminary Blood - Venous No growth after 24 hours. Assessment and Plan (1) Cutaneous sporotrichosis: Status: Acute (2) Cellulitis: Status: Acute Plan 66-year-old male with no pertinent past medical history presents to the hospital after being prepped by 30 [address] developing swelling in his right ring finger Cellulitis/abscess of right forth finger No evidence of sepsis s/p I&D in ED, no fluid sent for culture will cover for possible cutaneous sporotrichosis with IV fluconazole (itraconazole not on formulary) given patient's history of injury with tez regan thorn - continue IV vancomycin - seen by ortho, no surgical intervention required at this time, recommended warm soaks 3-4x daily - infectious Disease consult pending - pain control - follow blood cultures tob dependence smoking cessation advised NRT DVT prophylaxis: Lovemichaelx Attending: dr. devlin Quality Stroke Does the patient have a stroke diagnosis?: No VTE Prior VTE?: No VTE Risk Level:: Medical - moderate - high VTE Device Contraindication: Treatment Not Indicated VTE Drug Contraindication: N/A - Med Ordered
[2022-03-18] MEDS: Nicotine 21 MG PATCH.TD24 TRANSDERMA (09:34)
[2022-03-18] MEDS: 0.9 % Sodium Chloride Flush 3 ML SYRINGE IVFLUSH ×2 (09:35→16:16)
[2022-03-18 11:41] VITALS: BP 141/87; PULSE 61; RESP 18; TEMP 36.9; O2SAT 95
[2022-03-18 13:27] LABS: Vancomycin Trough 7.6 mcg/mL (10.0-20.0)
--- NOTE | 2022-03-18 13:50 | HE.PHANOTE ---
RE IRVIN Increase dose to 1250mg q12h, next trough due at midnight 03/20. Suspected trough 14.2, auc 510 Thanks Rodolfo
[2022-03-18] MEDS: HYDROmorphone HCl 1 MG/ML SYRINGE 0.5 MG IVPUSH (14:23)
[2022-03-18] MEDS: vancomycin HCL 1,250 MG in 0.9 % Sodium Chloride 250 ML 166.67 MG IV (14:23)
[2022-03-18 16:00] VITALS: BP 134/85; PULSE 63; RESP 18; TEMP 37; O2SAT 97
--- NOTE | 2022-03-18 17:48 | P.CONOP_ITS ---
History of Present Illness HPI Consult date: 03/17/22 Chief complaint: Hand Cellulitis Narrative: Mr Raines is a 66 yo male who was admitted to the medical service for right hand cellulitis. He was working outside and got some cuts on his hand from a tez regan about 4 days ago. He states 2 days ago he noticed some pain and swelling of the ring finger. He tried soaking the finger but it only became worse. While in the ED, he had a besdie I&D and a small amount of pus was expressed. He was admitted to the hospital for iv abx and antifungals. Orthopedics was consulted for further recoommendations. Review of Systems Review of Systems: as per [facility] Past Medical History Medical History (Updated 03/17/22 @ 06:11 by Debbie Cervantes MD) No pertinent past medical history Family History Family History (Updated 03/17/22 @ 06:12 by Debbie Cervantes MD) Father Prostate cancer Surgical History Surgical History (Updated 03/17/22 @ 06:11 by Debbie Cervantes MD) No pertinent past surgical history Social History Social History Household Members: Family Housing: Apartment Patient Tobacco Use Status: Current everyday Tobacco user Tobacco use type: Cigarette Smoked in Last 30 Days: Yes Patient Interested in Nicotine Replacement: Yes Patient Given Instructions on How to Stop Smoking: Yes Date Education Initiated: 03/17/22 Second Hand Smoke Exposure: No Use of substances other than those prescribed or required for medical reasons: No Currently Displaying Signs/Symptoms of Drug Intoxication Withdrawal: No Have you been hit, kicked, punched, or otherwise hurt by someone within the past year? If so, by whom?: No Do you feel safe in your current relationship?: No Current Relationship Is there a partner from a previous relationship who is making you feel unsafe now?: No Advance Directives: No Advance Directives Information Provided: No Do you have thoughts of harming others: None Do you have a plan to hurt others: No Plan Recently lost weight without trying: No Eating poorly because of decreased appetite: No Nutrition Risks: No Nutritional Risk service: No Current occupational status: unemployed Meds Allergies Allergy/AdvReac Type Severity Reaction Status Date / Time No Known Allergies Allergy Verified 03/16/22 17:16 Active Medications: Current Medications Acetaminophen (Acetaminophen 325 Mg Tablet) 650 mg PO Q6H PRN PRN Reason: Pain, Mild (Pain Scale 1-3) Last Admin: 03/17/22 01:43 Dose: 650 mg Documented by: Docusate Sodium (Docusate Sodium 100 Mg Capsule) 100 mg PO DAILY PRN PRN Reason: Constipation Enoxaparin Sodium (Enoxaparin Sodium 40 Mg/0.4 Ml Syringe) 40 mg SUBCUT Q24H [facility] Last Admin: 03/18/22 00:49 Dose: Not Given Documented by: Hydromorphone HCl (Hydromorphone Hcl 1 Mg/Ml Syringe) 0.5 mg IVPUSH Q4H PRN; Protocol PRN Reason: Pain, Severe (Pain Scale 7-10) Last Admin: 03/18/22 14:23 Dose: 0.5 mg Documented by: Fluconazole (Diflucan) 400 mg in 200 mls @ 100 mls/hr IV Q24H [facility] Last Infusion: 03/18/22 00:22 Dose: Infused Documented by: Vancomycin HCl 1,250 mg/ (Sodium Chloride) 250 mls @ 166.667 mls/hr IV Q12H [facility] Last Infusion: 03/18/22 16:11 Dose: Infused Documented by: Nicotine (Nicotine 21 Mg Patch.Td24) 21 mg TRANSDERMA DAILY [facility] Last Admin: 03/18/22 09:34 Dose: 21 mg Documented by: Ondansetron HCl (Ondansetron Hcl 4 Mg/2 Ml Vial) 4 mg IVPUSH Q8H PRN PRN Reason: Nausea and Vomiting Oxycodone HCl (Oxycodone Hcl Immed Release 5 Mg Tablet) 10 mg PO Q4H PRN PRN Reason: Pain, Moderate (Pain Scale 4-6 Last Admin: 03/18/22 16:19 Dose: 10 mg Documented by: Pharmacy Consult (Consult Rx Perform Med Rec) 1 each MISCELLANE ONCE PRN PRN Reason: Consult order Pharmacy Consult (Consult Rx Vancomycin Dosing) 1 each MISCELLANE DAILY PRN PRN Reason: Consult order Sodium Chloride (0.9 % Sodium Chloride Flush 3 Ml Syringe) 3 ml IVFLUSH QSHIFT [facility] Last Admin: 03/18/22 16:16 Dose: 3 ml Documented by: Home Medications Medication Instructions Recorded Confirmed Last Taken Type No Known Home Meds 03/16/22 03/16/22 Unknown History Physical Exam Vital Signs: Vital Signs: Last Vital Signs Temp 98.6 F 03/18/22 16:00 Pulse 63 03/18/22 16:00 Resp 18 03/18/22 16:00 BP 134/85 03/18/22 16:00 Pulse Ox 97 03/18/22 16:00 BMI result Body Mass Index 24.3 Const: General: cooperative, healthy appearing, comfortable and no acute distress Extrem: Other: there is no fluctulant or purulant area at this time to drain he can make fist bringing tip of fingers about 2cm from palmar crease. no pain with passive extension no pain along the flexor tendons, palmar aspect of hand or in thenar eminence no pain with axial loading of finger or wrist no lymphangitis Results Labs Result Diagrams: 03/18/22 05:46 03/18/22 05:45 Labs: Abnormal lab results 03/18/22 03/18/22 Range/Units 05:46 11:42 RBC 4.32 L (4.60-5.80) X10*6/uL Hgb 13.5 L (14.0-18.0) g/dl Vancomycin Trough 7.6 L (10.0-20.0) mcg/mL H & H 03/16/22 03/17/22 03/18/22 Range/Units 18:17 05:36 05:46 Hgb 14.8 13.3 L 13.5 L (14.0-18.0) g/dl Hct 43.9 40.5 L 42.2 (42.0-52.0) % Coagulation 03/16/22 Range/Units 18:17 INR 1.1 (0.9-1.1) All other labs normal. Assessment and Plan (1) Cutaneous sporotrichosis: Status: Acute (2) Cellulitis: Status: Acute Plan I recommend continue iv abx and antifungals continue warm water soaks elevate and work on ROM will recheck tomorrow Procedures Date of Service Date of Service: 03/17/22
[2022-03-18 20:00] VITALS: BP 150/69; PULSE 67; RESP 18; TEMP 37.1; O2SAT 98
[2022-03-18] MEDS: Fluconazole in NaCl,Iso-Osm 400 MG/200 ML PIGGYBACK 100 MG IV (20:10)
--- NOTE | 2022-03-18 20:26 | PM.PNORT ---
Subjective Subjective Date of Service: 03/18/22 Interval history: LOS #2 patient states his hand is less red but he continues to have pain in the finger with tension Physical Exam Vital Signs: Vital Signs: Last Vital Signs Temp 98.7 F 03/18/22 20:00 Pulse 67 03/18/22 20:00 Resp 18 03/18/22 20:00 BP 150/69 H 03/18/22 20:00 Pulse Ox 98 03/18/22 20:00 BMI result Body Mass Index 24.3 Extrem: Other: there is no fluctulant or purulant area at this time to drain he can make fist bringing tip of fingers about 2cm from palmar crease. no pain with passive extension no pain along the flexor tendons, palmar aspect of hand or in thenar eminence no pain with axial loading of wrist, unable to test the IP joints due to pain no lymphangitis Procedures Date of Service Date of Service: 03/18/22 Progress Note: A&P Assessment and plan (1) Cutaneous sporotrichosis: Status: Acute (2) Cellulitis: Status: Acute Assessment and Plan: The finger continues to be tense and red and painful to the patient. I recommend NPO after midnight incase we need to take to OR tomorrow for I&D under anesthesia. The patient is content with this plan. He will be tentatively added on to the OR schedule. Time Spent With Patient Time: Total time spent is greater than 50% in coordination of care (as documented) at patient's floor/unit and/or counseling patient: Quality Stroke Does the patient have a stroke diagnosis?: No VTE Prior VTE?: No VTE Risk Level:: Medical - moderate - high VTE Device Contraindication: Treatment Not Indicated VTE Drug Contraindication: N/A - Med Ordered
--- NOTE | 2022-03-18 22:09 | P.CNID_ITS ---
History of Present Illness Data of Consult Service Date: 03/17/22 Requesting physician: John Moore Primary Care Provider: Unknown Physician HPI Reason for consult: right fourth finger infection He presents with three days discomfort right fourth finger. It is swollen. He injured it on a thorn from a tez regan. He hs no fever or chills. Review of Systems Review of Systems: Yes all other systems are reviewed and are negative PMFSH Past Medical History Medical History No pertinent past medical history Family History Family History Father Prostate cancer Family history: reviewed and not pertinent Surgical History Surgical History No pertinent past surgical history Social History Social History Household Members: Family Housing: Apartment Patient Tobacco Use Status: Current everyday Tobacco user Tobacco use type: Cigarette Smoked in Last 30 Days: Yes Patient Interested in Nicotine Replacement: Yes Patient Given Instructions on How to Stop Smoking: Yes Date Education Initiated: 03/17/22 Second Hand Smoke Exposure: No Use of substances other than those prescribed or required for medical reasons: No Currently Displaying Signs/Symptoms of Drug Intoxication Withdrawal: No Have you been hit, kicked, punched, or otherwise hurt by someone within the past year? If so, by whom?: No Do you feel safe in your current relationship?: No Current Relationship Is there a partner from a previous relationship who is making you feel unsafe now?: No Advance Directives: No Advance Directives Information Provided: No Do you have thoughts of harming others: None Do you have a plan to hurt others: No Plan Recently lost weight without trying: No Eating poorly because of decreased appetite: No Nutrition Risks: No Nutritional Risk service: No Current occupational status: unemployed Meds Allergies Allergy/AdvReac Type Severity Reaction Status Date / Time No Known Allergies Allergy Verified 03/16/22 17:16 Active Medications: Current Medications Acetaminophen (Acetaminophen 325 Mg Tablet) 650 mg PO Q6H PRN PRN Reason: Pain, Mild (Pain Scale 1-3) Last Admin: 03/17/22 01:43 Dose: 650 mg Documented by: Docusate Sodium (Docusate Sodium 100 Mg Capsule) 100 mg PO DAILY PRN PRN Reason: Constipation Enoxaparin Sodium (Enoxaparin Sodium 40 Mg/0.4 Ml Syringe) 40 mg SUBCUT Q24H [facility] Last Admin: 03/18/22 00:49 Dose: Not Given Documented by: Hydromorphone HCl (Hydromorphone Hcl 1 Mg/Ml Syringe) 0.5 mg IVPUSH Q4H PRN; Protocol PRN Reason: Pain, Severe (Pain Scale 7-10) Last Admin: 03/18/22 14:23 Dose: 0.5 mg Documented by: Fluconazole (Diflucan) 400 mg in 200 mls @ 100 mls/hr IV Q24H [facility] Last Admin: 03/18/22 20:10 Dose: 100 mls/hr Documented by: Vancomycin HCl 1,250 mg/ (Sodium Chloride) 250 mls @ 166.667 mls/hr IV Q12H [facility] Last Infusion: 03/18/22 16:11 Dose: Infused Documented by: Nicotine (Nicotine 21 Mg Patch.Td24) 21 mg TRANSDERMA DAILY [facility] Last Admin: 03/18/22 09:34 Dose: 21 mg Documented by: Ondansetron HCl (Ondansetron Hcl 4 Mg/2 Ml Vial) 4 mg IVPUSH Q8H PRN PRN Reason: Nausea and Vomiting Oxycodone HCl (Oxycodone Hcl Immed Release 5 Mg Tablet) 10 mg PO Q4H PRN PRN Reason: Pain, Moderate (Pain Scale 4-6 Last Admin: 03/18/22 20:11 Dose: 10 mg Documented by: Pharmacy Consult (Consult Rx Perform Med Rec) 1 each MISCELLANE ONCE PRN PRN Reason: Consult order Pharmacy Consult (Consult Rx Vancomycin Dosing) 1 each MISCELLANE DAILY PRN PRN Reason: Consult order Sodium Chloride (0.9 % Sodium Chloride Flush 3 Ml Syringe) 3 ml IVFLUSH QSHIFT [facility] Last Admin: 03/18/22 16:16 Dose: 3 ml Documented by: Home Medications Medication Instructions Recorded Confirmed Last Taken Type No Known Home Meds 03/16/22 03/16/22 Unknown History Physical Exam Vital Signs: Vital Signs: Last Vital Signs Temp 98.7 F 03/18/22 20:00 Pulse 67 03/18/22 20:00 Resp 18 05/08/22 20:00 BP 150/69 H 03/18/22 20:00 Pulse Ox 98 03/18/22 20:00 BMI result Body Mass Index 24.3 Const: General: cooperative HEENT: Head: Yes normal to inspection Mouth: Normal oral and palatal mucosa present Resp: Effort & Inspection: normal respiratory effort Cardio: Rate: regular rate Rhythm: regular rhythm GI: Palpation (GI): Soft to palpation and nontender Skin: General skin exam: no rashes or lesions noted Extrem: Other: right fourth finger swollen Results Labs CBC & Chem 7: 03/18/22 05:46 03/18/22 05:45 Labs: Short CBC 03/18/22 Range/Units 05:46 WBC 7.8 (4.8-10.8) X10*3/uL Hgb 13.5 L (14.0-18.0) g/dl Hct 42.2 (42.0-52.0) % Plt Count 208 (160-400) X10*3/uL BMP 03/18/22 05:45 Sodium 136 Potassium 4.4 Chloride 100 Carbon Dioxide 28 BUN 9 Creatinine 0.83 Calcium 9.3 Microbiology Microbiology Results: Microbiology 03/16/22 18:17 Blood - Venous Blood Culture - Preliminary No growth after 48 hours. 03/16/22 18:19 Blood - Venous Blood Culture - Preliminary No growth after 48 hours. Assessment and Plan (1) Cutaneous sporotrichosis: Status: Acute There is concern over sporotrichosis and gram positive and gram negative possible. He has blood cultures negative so far. (2) Cellulitis: Status: Acute Plan Would continue Vancomycin and Diflucan for now If improving po Doxycycline and Sporanox for 2-3 weeks See Hand Surgery
[2022-03-18 23:29] VITALS: BP 136/76; PULSE 71; RESP 17; TEMP 36.7; O2SAT 97
[2022-03-19] MEDS: 0.9 % Sodium Chloride Flush 3 ML SYRINGE IVFLUSH ×4 (00:50→21:07)
[2022-03-19] MEDS: HYDROmorphone HCl 1 MG/ML SYRINGE 0.5 MG IVPUSH ×4 (01:01→19:31)
[2022-03-19] MEDS: vancomycin HCL 1,250 MG in 0.9 % Sodium Chloride 250 ML 166.67 MG IV ×2 (01:22→14:41)
[2022-03-19 03:19] VITALS: BP 129/63; PULSE 65; RESP 16; TEMP 36.4; O2SAT 97
[2022-03-19 07:06] VITALS: BP 118/78; PULSE 64; RESP 17; TEMP 37.1; O2SAT 96
[2022-03-19] MEDS: Nicotine 21 MG PATCH.TD24 TRANSDERMA (07:26)
[2022-03-19 08:51] LABS: Creatinine Clr Calc Pharmacy 93.2; Estimated Glomerular Filt Rate > 60
--- NOTE | 2022-03-19 10:28 | HO.PM.IMPN ---
Subjective Subjective Date of Service: 03/19/22 <Debbie Barnhart NP - Last Filed: 03/19/22 10:34> 03/20/22 <Manohar Leonard MD - Last Filed: 03/20/22 08:34> Review of Systems follow up for right hand infection still with pain and swelling some mild drainage <Debbie Barnhart NP - Last Filed: 03/19/22 10:34> Physical Exam Vital Signs: Vital Signs: Last Vital Signs Temp 98.7 F 03/19/22 07:06 Pulse 64 03/19/22 07:06 Resp 17 03/19/22 07:06 BP 118/78 03/19/22 07:06 Pulse Ox 96 03/19/22 07:06 BMI result Body Mass Index 24.3 <Debbie Barnhart NP - Last Filed: 03/19/22 10:34> Appearing in no acute distress lung sounds are clear to auscultation heart regular rate rhythm, clear S1, S2 positive bowel sounds, abdomen is soft, nontender neuro patient is alert x3, no focal deficits Right hand 4th digit erythema, edema, scant yellow drainage <Debbie Barnhart NP - Last Filed: 03/19/22 10:34> Objective Data Active Medications Acetaminophen (Acetaminophen 325 Mg Tablet) 650 mg PO Q6H PRN PRN Reason: Pain, Mild (Pain Scale 1-3) Last Admin: 03/17/22 01:43 Dose: 650 mg Documented by: LESLY Docusate Sodium (Docusate Sodium 100 Mg Capsule) 100 mg PO DAILY PRN PRN Reason: Constipation Enoxaparin Sodium (Enoxaparin Sodium 40 Mg/0.4 Ml Syringe) 40 mg SUBCUT Q24H [facility] Last Admin: 03/19/22 00:52 Dose: Not Given Documented by: JANE Non-Admin Reason: Patient Refused Hydromorphone HCl (Hydromorphone Hcl 1 Mg/Ml Syringe) 0.5 mg IVPUSH Q4H PRN; Protocol PRN Reason: Pain, Severe (Pain Scale 7-10) Last Admin: 03/19/22 06:29 Dose: 0.5 mg Documented by: JANE Fluconazole (Diflucan) 400 mg in 200 mls @ 100 mls/hr IV Q24H [facility] Last Infusion: 03/18/22 22:17 Dose: 0 mls/hr Documented by: RAMSES Vancomycin HCl 1,250 mg/ (Sodium Chloride) 250 mls @ 166.667 mls/hr IV Q12H [facility] Last Infusion: 03/19/22 02:52 Dose: 0 mls/hr Documented by: JANE Nicotine (Nicotine 21 Mg Patch.Td24) 21 mg TRANSDERMA DAILY [facility] Last Admin: 03/19/22 07:26 Dose: 21 mg Documented by: JANNET Ondansetron HCl (Ondansetron Hcl 4 Mg/2 Ml Vial) 4 mg IVPUSH Q8H PRN PRN Reason: Nausea and Vomiting Oxycodone HCl (Oxycodone Hcl Immed Release 5 Mg Tablet) 10 mg PO Q4H PRN PRN Reason: Pain, Moderate (Pain Scale 4-6 Last Admin: 03/18/22 20:11 Dose: 10 mg Documented by: RAMSES Pharmacy Consult (Consult Rx Perform Med Rec) 1 each MISCELLANE ONCE PRN PRN Reason: Consult order Pharmacy Consult (Consult Rx Vancomycin Dosing) 1 each MISCELLANE DAILY PRN PRN Reason: Consult order Sodium Chloride (0.9 % Sodium Chloride Flush 3 Ml Syringe) 3 ml IVFLUSH QSHIFT [facility] Last Admin: 03/19/22 07:29 Dose: 3 ml Documented by: JANNET <Debbie Barnhart NP - Last Filed: 03/19/22 10:34> Labs CBC & Chem 7: : 03/18/22 05:46 03/19/22 08:15 <Debbie Barnhart NP - Last Filed: 03/19/22 10:34> Labs: Laboratory Results - last 24 hr 03/18/22 03/19/22 11:42 08:15 Estim Creat Clear Calc 93.2 Estimated GFR > 60 Vancomycin Trough 7.6 L <Debbie Barnhart NP - Last Filed: 03/19/22 10:34> Microbiology Microbiology Results: Microbiology 03/16/22 18:17 Blood Culture - Preliminary Blood - Venous No growth after 48 hours. 03/16/22 18:19 Blood Culture - Preliminary Blood - Venous No growth after 48 hours. <Debbie Barnhart NP - Last Filed: 03/19/22 10:34> Assessment and Plan (1) Cutaneous sporotrichosis: Status: Acute <Debbie Barnhart NP - Last Filed: 03/19/22 10:34> (2) Cellulitis: Status: Acute <Debbie Barnhart NP - Last Filed: 03/19/22 10:34> Plan 66-year-old male with no pertinent past medical history presents to the hospital after being prepped by 30 tez regan developing swelling in his right ring finger Cellulitis/abscess of right forth finger from tez thorn still needing drainage, will go to OR today will cover for possible cutaneous sporotrichosis with IV fluconazole (itraconazole not on formulary) given patient's history of injury with tez regan thorn continue IV vancomycin seen by ortho, recommended warm soaks 3-4x daily, will do I&D today infectious Disease following rec continuing vanco for now then doxycycline and sporanox for 2-3 weeks likely pain control blood cx neg after 48 hours Tobacco dependence smoking cessation advised NRT DVT prophylaxis: Joann Attending:Dr. Leonard Full code Patient requires continued hospitalization for treatment of abscess to right hand 4th finger necessitating IV antibiotics and further drainage as per surgical team <Debbie Barnhart NP - Last Filed: 03/19/22 10:34> Quality Stroke Does the patient have a stroke diagnosis?: No <Debbie Barnhart NP - Last Filed: 03/19/22 10:34> VTE Prior VTE?: No <Debbie Barnhart NP - Last Filed: 03/19/22 10:34> VTE Risk Level:: Medical - moderate - high <Debbie Barnhart NP - Last Filed: 03/19/22 10:34> VTE Device Contraindication: Treatment Not Indicated <Debbie Barnhart NP - Last Filed: 03/19/22 10:34> VTE Drug Contraindication: N/A - Med Ordered <Debbie Barnhart NP - Last Filed: 03/19/22 10:34>
[2022-03-19 10:41] VITALS: BP 156/89; PULSE 67; RESP 16; TEMP 36.9; O2SAT 98
--- NOTE | 2022-03-19 10:48 | P.OP_ITS ---
Operative Note Operative Note Date of Service: 03/19/22 Narrative: Operative Note Preop diagnosis: 1. right ring finger infection Postop diagnosis: same Procedure: 1. right ring finger I&D Surgeon: Jayda Conley MD Anesthesia: digital block using 1% lidocaine with epinephrine Findings: copious amounts of yellow creamy purulent material were found over the dorsal aspect of the right ring finger between the PIP and D IP joints. The skin in this area was hyperemic and somewhat friable. Is an area of skin breakdown just proximal to the D IP joint. He does not appear to have had involvement volarly. EBL: Less than 5 mL Tourniquet time: None Specimens: purulent material For Gram stain, aerobe anaerobic AFB and fungal cultures x2 Drains: Iodoform drains x2 Complications: None Disposition: Brought to recovery room in stable condition Plan: admit back to floor, and continue IV antibiotics and antifungal per Infectious Disease. Wound check tomorrow, removed drains and check cultures. Continue with antibiotics and antifungals per Infectious Disease recommendations. possible repeat I and D on Indications: The patient is 66 years old, with a right ring finger infection after being injured by a tez regan thorn . The risks and benefits of operative treatment including but not limited to risk of damage to blood vessels, nerves, tendons, infection, persistent pain, persistent symptoms, recurrence or possible need for additional surgery were discussed with the patient and the patient wishes to proceed with surgery. Procedure: Once consent was obtained a digital block was performed in the preop area using a combination of 1% lidocaine with epinephrine. The patient was then brought back to the operating suite and placed on the operative table in supine position. A tourniquet was applied to the proximal aspect of the right upper extremity and the limb was prepped and draped in a standard surgical fashion. the tourniquet was not inflated. Once assured that we had a good block, I 1st made a dorsal longitudinal incision through a superficial layer of nonviable skin, much like a blister. The incision extended from the D IP to the PIP joints and again was superficial. This area was full of yellow creamy pus. Cultures were taken of this material. Debrided this superficial nonviable skin layer using 15. Blade. This then revealed a deeper viable layer of skin that was hyperemic and friable. There was an area of skin breakdown just proximal to the D IP joint that measured approximately 9 mm in diameter through which yellow creamy purulent material passed. I Then made a dorsal longitudinal incision extending from the dorsal aspect of the D IP joint to the mid aspect of the middle phalanx. there is again creamy thick purulent material found, this time between the skin and the extensor mechanism and dorsal aspect of the middle phalanx. Cultures were taken of this pocket of purulence. A 1 cm dorsal longitudinal incision was made through the skin at the level of the PIP joint as well. These wounds were copiously irrigated with normal saline. A rongeur was also used to debride some fibrinous exudate and nonviable tissue from this area. The area of skin breakd own was also carefully debrided of the fibrinous exudate using a rongeur. I did not extend our debridement into the D IP or PIP joints, as based on his exam in preop hold I think it is certainly possible that these joints are not involved. . Hemostasis was obtained with a brief period of local pressure. lidocaine with epinephrine was used for our block. As we finished our I and D he was noted to have good cap refill to the tip of the digit. The skin edges were Loosely reapproximated with some 4.0 nylon suture material, iodoform drains x2 were placed between the skin and the extensor tendon layer. A sterile dressing and a volar splint extending from the tips of the middle ring and small fingers extending to the volar forearm was then placed. The patient appears to have tolerated the procedure well and with no complications. All digits were well vascularized at the conclusion of the case.
--- NOTE | 2022-03-19 11:41 | MHC.SHP ---
Pre-Procedural Eval Section A Date of Service: 03/19/22 The patient is an INPATIENT: Yes The History & Physical has been completed within 30 days and I have reviewed it.: Yes Section B Chief Complaint: Hand Cellulitis Details of Present Illness: right ring finger infection status post tez thorn injury, not improving on antibiotics right ring finger red and tensely swollen with some drainage from a wound over the dorsal aspect of the D IP joint. No wounds or significant erythema on the volar aspect of the finger. Can flex and extend the digit but limited by pain and swelling on the dorsum of the finger. Allergies: Allergies Allergy/AdvReac Type Severity Reaction Status Date / Time No Known Allergies Allergy Verified 03/16/22 17:16 Plan I have reviewed the history and physical and performed a pertinent physical examination on my patient. No changes have occurred unless specified. The plan is to take him to the operating room for an I&D. The risks and benefits of operative treatment were discussed with the patient, including the possible need for further surgery. He wishes to proceed with surgery. The consent was filled out today and signed.
[2022-03-19 12:00] VITALS: BP 151/84; PULSE 72; RESP 18; TEMP 36.6; O2SAT 98
--- NOTE | 2022-03-19 14:02 | MHC.CM.PN ---
NURSE MAINTENANCE MECHANIC SUPERVISOR NOTE ELECTRONIC MEDICAL RECORD REVIEWWED ALONG WITH CASE DISCUSSED WITH STAFF NURSE AND HOSPITLASIT PATIENT WILL BE HAVING SURGICAL INTERVENTION TODAY INCISION AND DRAINAGE OF HIS FINGER FROM THORN MORRIS AND CAUSING HAND CELLULITIS. CURRENT PLAN IS TO CONTINUE HIS CURRENT MEICATIONS AND MAINTENANCE MECHANIC SUPERVISOR TO CONTINUE TO MONITOR FOR DISCHARGE NEEDS ]DISCHARGE PLAN RETURN HOME TO [place] WITH NO SERVICES AND FOLLOW UP WITH HIS PCP UPON RETURNING TO [place] TRANSPORTATION [facility] [employer] MEDICARE IMM 03/17/22
[2022-03-19 15:14] VITALS: BP 123/76; PULSE 72; RESP 18; TEMP 37; O2SAT 96
[2022-03-19 19:23] VITALS: BP 149/81; PULSE 72; RESP 18; TEMP 36.9; O2SAT 99
[2022-03-19] MEDS: Fluconazole in NaCl,Iso-Osm 400 MG/200 ML PIGGYBACK 100 MG IV (21:06)
[2022-03-20] VITALS: BP 148/82; PULSE 72; RESP 17; TEMP 36.2; O2SAT 100
[2022-03-20 00:55] LABS: Vancomycin Trough 13.1 mcg/mL (10.0-20.0)
[2022-03-20] MEDS: vancomycin HCL 1,250 MG in 0.9 % Sodium Chloride 250 ML 166.67 MG IV (01:29)
[2022-03-20] MEDS: HYDROmorphone HCl 1 MG/ML SYRINGE 0.5 MG IVPUSH ×2 (01:32→08:02)
[2022-03-20 03:10] VITALS: BP 146/72; PULSE 63; RESP 17; TEMP 36.6; O2SAT 98
--- NOTE | 2022-03-20 07:31 | PM.PNORT ---
Subjective Subjective Date of Service: 03/20/22 Interval history: POD1 s/p right ring finger I+D with Dr. Conley. Patient was walking around his room with mild pain. No overnight events. No additional complaints. Physical Exam Vital Signs: Vital Signs: Last Vital Signs Temp 97.9 F 03/20/22 03:10 Pulse 63 03/20/22 03:10 Resp 17 03/20/22 03:10 BP 146/72 H 03/20/22 03:10 Pulse Ox 98 03/20/22 03:10 BMI result Body Mass Index 24.3 Const: General: cooperative, healthy appearing and no acute distress Resp: Effort & Inspection: normal respiratory effort and able to speak in complete sentences Cardio: Rate: regular rate Peripheral pulses: Peripheral pulses 2+ throughout GI: Palpation (GI): Soft to palpation Skin: Lesions: no lesions Rashes: no rashes Extrem: Other: Right ring finger packing pulled at bedside. Sutures intact. Patient has continued extreme pain with any motion. [place] perfusing tissue. Procedures Date of Service Date of Service: 03/20/22 Progress Note: A&P Assessment and plan (1) Cellulitis: Status: Acute Plan Continue pain mgmnt Continue abx per medicine and I+D Will monitor for possible second wash out in the OR Dispo planning-Pending Pain mgmnt, resolving symptoms Time Spent With Patient Time: Total time spent is greater than 50% in coordination of care (as documented) at patient's floor/unit and/or counseling patient: Quality Stroke Does the patient have a stroke diagnosis?: No VTE Prior VTE?: No VTE Risk Level:: Medical - moderate - high VTE Device Contraindication: Treatment Not Indicated VTE Drug Contraindication: N/A - Med Ordered
[2022-03-20 07:51] VITALS: BP 142/86; PULSE 83; RESP 18; TEMP 36.4; O2SAT 98
[2022-03-20] MEDS: Nicotine 21 MG PATCH.TD24 TRANSDERMA (08:02)
[2022-03-20] MEDS: 0.9 % Sodium Chloride Flush 3 ML SYRINGE IVFLUSH ×2 (08:02→14:15)
[2022-03-20 10:17] LABS: Anion Gap 13 (12-20); Blood Urea Nitrogen 12 mg/dL (9-16); Calcium 9.7 mg/dL (8.4-10.2); Carbon Dioxide 28 mmol/L (22-29); Chloride 103 mmol/L (96-108); Creatinine Clr Calc Pharmacy 81.8; Estimated Glomerular Filt Rate > 60; Glucose Random 104 mg/dL (60-115); Potassium 4.7 mmol/L (3.3-5.1); Sodium 139 mmol/L (135-145)
[2022-03-20 11:42] VITALS: BP 140/76; PULSE 70; RESP 18; TEMP 36.2; O2SAT 99
[2022-03-20] MEDS: oxyCODONE HCl Immed Release 5 MG TABLET 10 MG PO (12:14)
--- NOTE | 2022-03-20 12:22 | MHC.CM.PN ---
NURSE SILVER WRAPPER NOTE ELECTRONIC MEDICAL RECORD REVIEWED CASE DISCUSSED WITH STAFF NURSE AND HOSPITLSIT . PATIENT IS ANTICUIPATED TO BE DISCHARGED HOME TODAY , STAYING WITH RELATIVES , HE IS FROM [place] AND HIS PCP IS IN [place]. S/P S/P INCISION AND DRAINAGE FORM THORN MORRIS PRICK INFECTION PER HOSPITLAIST PATIENT ANTICIUPATED TO BE D/C HOME WITH NO SETVIES AND FOLLOW UP WITH [facility] PER THE DISCHARGE INSTRUXTIONS DISCHARGE PLAN HOME NO SERVVICES (PATIENT REPORTS HE CAN DO HIS OWN DRESSING WITH TEACHINF BY THE STAFF NURSE , AND WOULD BE ABLE TO PAY FOR ANY NEW SCRIPTS OR ORAL ABX IF NEEDED. TRANSPORTATION FAMILY AND WILL BE STAYING WITH HIS NEPHEW IN [place] MED[place] IMMM UPDATED
--- NOTE | 2022-03-20 13:46 | PM.DS ---
DS: Providers Provider Date of Service: 03/20/22 Date of admission: 03/16/22 23:36 Primary care physician: Unknown Physician Consults: 03/16/22 23:35 Consult to Infectious Diseases Routine Consulting Provider: Nuris Trevino Reason for consultation: hand cllulitis after tez regan thorn 03/17/22 09:15 Consult to Orthopedics Routine Consulting Provider: Mohinder Gibson Reason for consultation: sporichitorosis, cellulitis/abscess right hand Attending physician on discharge: Manohar Leonard Discharging clinician: Debbie Barnhart DS: Diagnosis Discharge Diagnosis (1) Cutaneous sporotrichosis: Status: Acute (2) Cellulitis: Status: Acute DS: Summary Hospital Course Hospital Course: HP as per admitting provider 66-year-old male with no significant past medical history presents to the hospital with swelling of his right ring finger.? Patient reports that he was working in the [employer] 3 days ago when he wrecked his hand against a thorn [employer] wish.? He thought he got the thorn out of his finger but then started developing swelling, redness, and significant pain in his ring finger on the right.? Patient reports the pain is 9/10, nonradiating, the finger has slowly become more swollen and erythematous.? He denies any fever or chills, no abdominal pain nausea or vomiting, no diarrhea constipation, no urinary symptoms and no lower extremity edema. On arrival to the ED patient hemodynamically stable with no significant vital abnormality Labs are significant for WBC count of 13.2, labs otherwise unremarkable.? CRP of 7 Hand x-ray shows moderate soft tissue swelling Becca 4th digit without acute underlying osseous abnormality Infectious Disease was consult, patient admitted after being given an anti fungal, and IV antibiotics . Cellulitis/abscess of right forth finger from tez thorn I&D in the ED initially then taken to the OR on 03/19/22 by ortho and second I&D with large amount of yellow drainage covered initially for cutaneous sporotrichosis with IV fluconazole (itraconazole not on formulary) given patient's history of injury with tez regan thorn continued IV vancomycin as well infectious Disease rec doxycycline and sporanox for 2weeks for treatment of sporotrichosis follow up with orthopedics pain control blood cx neg after 48 hours wound cx with staph aureus covered by doxycycline Tobacco dependence smoking cessation advised NRT Time Spent with Patient Time attestation: Total time spent providing and/or coordinating discharge services: Discharge coordination time: Greater than 30 minutes Quality: Safe Use of Opioids Does Pt have an Active Cancer Diagnosis on the Problem List?: No Quality: Stroke Does the patient have a stroke diagnosis?: No Physical Exam Vital Signs: Vital Signs: Last Vital Signs Temp 97.1 F 03/20/22 11:42 Pulse 70 03/20/22 11:42 Resp 18 03/20/22 11:42 BP 140/76 H 03/20/22 11:42 Pulse Ox 99 03/20/22 11:42 BMI result Body Mass Index 24.3 Appearing in no acute distress head is normocephalic atraumatic eyes pupils are PERRLA sclera is anicteric mouth throat mucous membranes are intact and moist neck is supple no lymphadenopathy, no JVD noted lung sounds are clear to auscultation heart regular rate rhythm, clear S1, S2 positive bowel sounds, abdomen is soft, nontender neuro patient is alert x3, no focal deficits Erythema and edema to right had 4th digit, covered with gauze DS: Data Data Completed and Pending Labs on day of discharge: Laboratory Results - last 24 hr 03/20/22 03/20/22 00:22 09:43 Sodium 139 Potassium 4.7 Chloride 103 Carbon Dioxide 28 Anion Gap 13 BUN 12 Creatinine 0.90 Estim Creat Clear Calc 81.8 Estimated GFR > 60 Random Glucose 104 Calcium 9.7 Vancomycin Trough 13.1 Preliminary micro results at discharge 03/19/22 Unknown Routine Culture - Preliminary Finger Right Ring Staphylococcus aureus Anaerobic Culture - Preliminary Culture in progress. 03/19/22 Unknown Routine Culture - Preliminary Finger Staphylococcus aureus Anaerobic Culture - Preliminary Culture in progress. 03/16/22 18:17 Blood Culture - Preliminary Blood - Venous No growth after 48 hours. 03/16/22 18:19 Blood Culture - Preliminary Blood - Venous No growth after 48 hours. Discharge Plan Discharge Anticipated Discharge Date/Time: 03/20/22 13:03 Patient Disposition: Home, Self-Care Discharge Diagnosis: Cellulitis abscess Referrals: Mohinder Gibson PA-C [Physician Mining Teacher] - 1 Week Discharge Medications: New doxycycline hyclate 100 mg tablet 100 mg PO BID Qty: 28 0RF itraconazole [Sporanox] 100 mg capsule 200 mg PO DAILY Qty: 28 0RF Rx Instructions: must administer with a meal/food No Action No Known Home Meds 0RF Diet: advance to usual diet Activity on Discharge: As tolerated Stand Alone Forms: Patient Portal Discharge page Care Plan Goals: Resolution of symptoms Health Concerns: Cellulitis abscess Plan of Treatment: Take Sporanox and doxycycline for the next 2 weeks Follow-up with the orthopedic surgeon for further management of right hand wound Daily dressing changes Assessment: see discharge summary
[2022-03-20] MEDS: vancomycin HCL 1,000 MG in 0.9 % Sodium Chloride 250 ML 270 MG IV (14:15)
[2022-03-20 15:18] VITALS: BP 137/76; PULSE 58; RESP 12; TEMP 36.6; O2SAT 96
== END 2022-03-20 16:34 | disposition home or self-care (01) | DRG 603 ==
LOC: HO.ED 19:09 → HO.EDOVER 23:45 → HO.S3 03-17 01:35
PROVIDERS: Internal Medicine; Orthopaedic Surgery; Physician Assistant Medical; Admitting Provider Internal Medicine; Emergency Provider Emergency Medicine; Visit Provider Nurse Practitioner Acute Care
PROC: 0H9FXZZ Drainage of Right Hand Skin, External Approach (ICD-10-PCS; principal; 2022-03-19 11:10)
DX: L02.511 Cutaneous abscess of right hand (principal); L03.011 Cellulitis of right finger; B95.61 Methicillin susceptible Staphylococcus aureus infection as the cause of diseases classified elsewhere; B42.89 Other forms of sporotrichosis; Z20.822 Contact with and (suspected) exposure to COVID-19; F17.210 Nicotine dependence, cigarettes, uncomplicated; Z71.6 Tobacco abuse counseling; Z79.899 Other long term (current) drug therapy
CPT/HCPCS: 36415; 73130; 80048; 80053; 80202; 82565; 83605; 83735; 85025; 85027; 85610; 85652; 86140; 87040; 87071; 87073; 87077; 87102; 87186; 87205; 87635; 90471; 90715; 96361; 96374; 96375; 96376; 99285; 99291; J0696; J1170; J1450; J1650; J2270; J2405; J3370

== ENCOUNTER → 2022-03-21 09:53 | Outpatient (BNVA) | payer MEDICARE, MEDICAID, SELFPAY | PROVIDERS: Visit Provider Physician Assistant | DX: Z47.89 Encounter for other orthopedic aftercare (principal); B42.89 Other forms of sporotrichosis | CPT/HCPCS: 99212 ==

== ENCOUNTER 2022-03-22 11:21 | Day surgery (SDC) | payer MEDICARE, MEDICAID, SELFPAY ==
[2022-03-22 11:43] VITALS: BMI 25.0
[2022-03-22 11:51] VITALS: BP 121/79; PULSE 75; RESP 16; TEMP 36.3; O2SAT 95
[2022-03-22 14:43] VITALS: BP 152/79; PULSE 77; RESP 16; TEMP 37.4; O2SAT 95
--- NOTE | 2022-03-22 15:16 | P.OP_ITS ---
Operative Note Operative Note Date of Service: 03/22/22 Narrative: Operative Note Preop diagnosis: 1. right ring finger infection Postop diagnosis: same Procedure: 1. right ring finger I and D Surgeon: Jayda Conley MD Anesthesia: digital block using 1% lidocaine with epinephrine Findings: appearance of the skin is improved. the finger is still swollen and erythematous, though slightly improved compared with several days ago. He still had some creamy yellow purulence deep in the wound near the proximal aspect of the middle phalanx EBL: Less than 5 mL Tourniquet time: None Specimens: Cultures taken of purulent material Drains: Iodoform x2 Complications: None Disposition: Brought to recovery room in stable condition Plan: follow-up tomorrow in clinic for wound check and removal of the 2 drains. Also please check to see that he is taking both the antibiotic doxycycline and the antifungal he will need a follow-up for Saturday, and is currently scheduled for repeat I and D for Saturday unless he has significant improvement by Saturday once we have control of the infection, he will need some OT hand therapy to work on range of motion. Indications: The patient is 66 . years old, with a right ring finger puru lent infection after an injury with a tez regan thorn . The risks and benefits of operative treatment including but not limited to risk of damage to blood vessels, nerves, tendons, infection, persistent pain, persistent symptoms, recurrence or possible need for additional surgery were discussed with the patient and the patient wishes to proceed with surgery. Procedure: Once consent was obtained a digital block was performed in the preop area using a combination of 1% lidocaine with epinephrine. The patient was then brought back to the operating suite and placed on the operative table in supine position. A tourniquet was applied to the proximal aspect of the right upper extremity and the limb was prepped and draped in a standard surgical fashion. Once assured that we had a good block, the sutures from his previous I&D were removed. By pushing from proximal to distal from the PIP joint area distally we expressed some yellow creamy purulent material. It is certainly much less than several days ago. The skin is also pink and not purple and hyperemic as it was several days ago. New cultures were taken. The wound was debrided of fibrinous exudate using a small rongeur and a 15. Blade. The wound was then copiously irrigated with normal saline. The skin edges were loosely reapproximated with some 5.0 nylon suture material, 2 iodoform drains were placed and a sterile dressing and volar splint were applied. The patient appears to have tolerated the procedure well and with no complications. All digits were well vascularized at the conclusion of the case.
--- NOTE | 2022-03-22 15:16 | MHC.SHP ---
Pre-Procedural Eval Section A Date of Service: 03/22/22 The patient is an INPATIENT: No Changes since office visit: No Cold of Flu in the past 2 weeks, No New Medical Problems, No Changes in Medication and No Patient answered all questions The History & Physical has been completed within 30 days and I have reviewed it.: Yes Section B Chief Complaint: Infection finger Allergies: Allergies Allergy/AdvReac Type Severity Reaction Status Date / Time No Known Allergies Allergy Verified 03/16/22 17:16 Plan I have reviewed the history and physical and performed a pertinent physical examination on my patient. No changes have occurred unless specified.
== END 2022-03-22 15:50 | disposition home or self-care (01) ==
PROVIDERS: Visit Provider Orthopaedic Surgery
PROC: (CPT 10140; principal; 2022-03-22 15:20)
DX: L03.011 Cellulitis of right finger (principal); L08.89 Other specified local infections of the skin and subcutaneous tissue; A49.01 Methicillin susceptible Staphylococcus aureus infection, unspecified site; F17.210 Nicotine dependence, cigarettes, uncomplicated
CPT/HCPCS: 10140; 87071; 87147; 87205; J0171

== ENCOUNTER → 2022-03-23 09:45 | Outpatient (BNVA) | payer MEDICARE, MEDICAID, SELFPAY | PROVIDERS: Visit Provider Physician Assistant | DX: B42.89 Other forms of sporotrichosis (principal) | CPT/HCPCS: 99212 ==

== ENCOUNTER 2022-03-26 | Outpatient (REF) | payer MEDICARE, MEDICAID, SELFPAY | END 2022-03-26 00:01 | LOC: CF | PROVIDERS: Visit Provider Physician Assistant | DX: L03.90 Cellulitis, unspecified (principal); B42.89 Other forms of sporotrichosis | CPT/HCPCS: 99212; J0171 ==